=== PATIENT | male | born 1985 | race African-American/Black ===

== ENCOUNTER 2018-04-22 22:01 | Emergency (ER) | payer MEDICAID ==
[~2018-04-22] VITALS: Ht 175.3 cm; Wt 87.0 kg
[2018-04-23] MEDS ORDERED: TETANUS, DIPHTHERIA, PERTUSSIS VAC/PF 0.5ML (>7YR OLD) IM ONE (00:30)
[2018-04-23] MEDS ORDERED: IBUPROFEN 800MG TABLET PO ONE (00:30)
[2018-04-23 01:00] VITALS: BP 124/65
== END 2018-04-23 01:05 | disposition home or self-care (01) ==
LOC: ER 22:01
DX: S61.012A Laceration without foreign body of left thumb without damage to nail, initial encounter (principal); W25.XXXA Contact with sharp glass, initial encounter; Y93.89 Activity, other specified; Y92.89 Other specified places as the place of occurrence of the external cause; Y99.8 Other external cause status
CPT/HCPCS: 12001; 99283